=== PATIENT | male | born 1960 | race Two or more races ===

== ENCOUNTER 2024-01-27 22:35 | Inpatient (IN) | payer OTHER ==
[~2024-01-27] VITALS: Ht 182.9 cm; Wt 87.7 kg
[2024-01-27] MEDS ORDERED: LABETALOL HCL 20 MG/4 ML VL IV PRN (23:00)
[2024-01-27] MEDS ORDERED: NALBUPHINE HCL 10 MG/1ml INJECTION IV ONE (23:00)
[2024-01-27] MEDS: InsuLIN REG 1unit/0.01ml Soln (100units/ml) IV ONE (23:00)
[2024-01-27] MEDS ORDERED: HYDROmorphone HCL 2 MG/ML VL/or syr IM ONE (23:00)
[2024-01-27 23:16] LABS: Basophils # (auto) 0 10 ^3/uL (0-0.2); Basophils % (auto) 0.5 % (0.0-2.0); Eosinophils # (auto) 0.1 10 ^3/uL (0-0.8); Eosinophils % (auto) 1.2 % (0.0-7.0); Hematocrit 29.7 % (41.0-53.0); Hemoglobin 10.1 g/dL (13.5-17.5); Lymphocytes # (auto) 0.6 10 ^3/uL (0.4-5.4); Lymphocytes % (auto) 11.2 % (10.0-50.0); Mean Corpuscular Hgb Conc. 33.8 g/dL (32.0-36.0); Mean Corpuscular Volume 97.7 fL (80.0-100.0); Monocytes # (auto) 0.3 10 ^3/uL (0-1.3); Monocytes % (auto) 5.9 % (0.0-12.0); Neutrophils # (auto) 4.7 10 ^3/uL (1.6-8.6); Neutrophils % (auto) 81.2 % (37.0-80.0); Red Blood Cells 3.04 10^6/uL (4.5-5.90); Red Cell Distribution Width 17.6 % (11.8-14.3); White Blood Cell 5.8 10^3/uL (4.4-10.8)
[2024-01-27 23:30] LABS: INR 1.05 (0.9-1.15); Partial Thromboplastin Time 25.5 SEC (24.5-34.5); Prothrombin Time 11.1 sec (9.3-11.8)
[2024-01-27 23:37] LABS: Alanine Aminotransferase 14 U/L (7-40); Albumin 4.6 g/dL (3.2-4.8); Alkaline Phosphatase 80 U/L (46-116); Anion Gap 15 (5-15); Aspartate Aminotransferase 11 U/L (13-40); BUN/Creatinine Ratio 6.5 (10.0-20.0); Bilirubin, Total 0.3 mg/dL (0.2-1.0); Blood Urea Nitrogen 60 mg/dL (9-23); Calcium 9.4 mg/dL (8.7-10.4); Carbon Dioxide 21 mmol/L (20-30); Chloride 96 mmol/L (98-107); Glucose 386 mg/dL (74-106); Potassium 4.1 mmol/L (3.5-5.1); Sodium 132 mmol/L (136-145); Total Protein 8.2 g/dL (5.7-8.2)
[2024-01-28] VITALS (7 sets, daily range): BP systolic 112–136; BP diastolic 54–68; PULSE 76–118; RESP 17–20; TEMP 97.7–98.4; O2SAT 92–100
[2024-01-28] MEDS: MORPHINE SULFATE 4 MG/ML SYR/VIAL IV ONE (01:00)
[2024-01-28] MEDS: ASPirin-EC 325mg tab PO ONE (01:00)
[2024-01-28] MEDS: ENOXAPARIN SOD 100 MG/1 ML SYRINGE SC ONE (02:21)
[2024-01-28] MEDS: ASPirin 325 MG TAB PO ONE (02:22)
[2024-01-28] MEDS ORDERED: MORPHINE SULFATE INJ 2 MG/ml SYRG IV PRN (04:45)
[2024-01-28] MEDS ORDERED: LABETALOL HCL 20 MG/4 ML VL IV PRN (04:45)
[2024-01-28] MEDS ORDERED: ONDANSETRON HCL 4 MG/2 ML VIAL IV PRN (04:45)
[2024-01-28] MEDS ORDERED: DEXTROSE (50%) 50ML SYRG IV PRN (04:45)
[2024-01-28] MEDS ORDERED: NITROGLYCERIN 0.4 MG SL TAB SL PRN (04:45)
[2024-01-28] MEDS: ACCU-CHEK COMFORT CURVE STRIP VI SCH (06:00)
[2024-01-28] MEDS: InsuLIN REG 1unit/0.01ml Soln (100units/ml) SC SCH (06:31)
[2024-01-28 08:15] LABS: Triglycerides 223 mg/dL (< 150)
[2024-01-28 08:16] LABS: LDL Cholesterol 101 mg/dL (< 100)
[2024-01-28 08:17] LABS: Cholesterol 165 mg/dL (< 200); HDL Cholesterol 27 mg/dL (40-59)
[2024-01-28] MEDS ORDERED: ASPirin 81 mg TAB PO SCH (10:00)
[2024-01-28] MEDS: CARVEDILOL 3.125 MG TAB PO SCH (10:05)
[2024-01-28] MEDS: CLOPIDOGREL BISULFATE 75 MG TAB PO ONE (10:42)
[2024-01-28] MEDS: SODIUM CHL 0.9% 1000 ML BAG XX ONE (11:00)
[2024-01-28] MEDS: HEPARIN DRIP/D5W 100UNITS/ML 250 ML IV SCH (13:30)
[2024-01-28 13:36] LABS: Hepatitis B Surface Antibody Positive (Negative)
[2024-01-28 13:48] LABS: Hepatitis B Surface Antigen Negative (Negative)
[2024-01-28 15:09] LABS: Basophils # (auto) 0 10 ^3/uL (0-0.2); Basophils % (auto) 0.8 % (0.0-2.0); Eosinophils # (auto) 0.1 10 ^3/uL (0-0.8); Eosinophils % (auto) 1.7 % (0.0-7.0); Hematocrit 29.3 % (41.0-53.0); Hemoglobin 9.9 g/dL (13.5-17.5); Lymphocytes # (auto) 0.7 10 ^3/uL (0.4-5.4); Lymphocytes % (auto) 11.2 % (10.0-50.0); Mean Corpuscular Hemoglobin 32.2 pg (28.0-32.0); Mean Corpuscular Hgb Conc. 33.9 g/dL (32.0-36.0); Monocytes # (auto) 0.5 10 ^3/uL (0-1.3); Monocytes % (auto) 8.1 % (0.0-12.0); Neutrophils % (auto) 78.2 % (37.0-80.0); Red Blood Cells 3.08 10^6/uL (4.5-5.90); Red Cell Distribution Width 17.8 % (11.8-14.3); White Blood Cell 6.4 10^3/uL (4.4-10.8)
[2024-01-28 15:29] LABS: INR 1.04 (0.9-1.15); Partial Thromboplastin Time 29.4 SEC (24.5-34.5)
[2024-01-28] MEDS ORDERED: MIDO10TA3 PO (18:31)
[2024-01-28] MEDS ORDERED: ATOR80TA PO (18:31)
[2024-01-28] MEDS ORDERED: CARV6.2517 PO (18:31)
[2024-01-28] MEDS ORDERED: CALC667C PO (18:31)
[2024-01-28] MEDS ORDERED: CLOP75TA28 PO (18:31)
[2024-01-28] MEDS ORDERED: GABA-1250 PO (18:31)
[2024-01-28] MEDS ORDERED: ACET-1304 PO (18:31)
[2024-01-28] MEDS ORDERED: CALC0.25 PO (18:31)
[2024-01-28 21:42] LABS: INR 1.03 (0.9-1.15); Partial Thromboplastin Time 29.3 SEC (24.5-34.5); Prothrombin Time 10.9 sec (9.3-11.8)
[2024-01-28] MEDS: ATORVASTATIN 20 MG TAB PO SCH (21:49)
[2024-01-28] MEDS ORDERED: ATORVASTATIN 20 MG TAB PO SCH (22:00)
[2024-01-28] MEDS: HEPARIN SODIUM (PORCINE) 5000 UNITS/ML 1ML VIAL IV ONE (23:13)
[2024-01-29] VITALS (13 sets, daily range): BP systolic 102–128; BP diastolic 52–99; PULSE 79–103; RESP 14–22; TEMP 97.5–98.3; O2SAT 94–99
[2024-01-29 06:10] LABS: Basophils # (auto) 0 10 ^3/uL (0-0.2); Basophils % (auto) 0.6 % (0.0-2.0); Eosinophils # (auto) 0.1 10 ^3/uL (0-0.8); Eosinophils % (auto) 2.3 % (0.0-7.0); Hematocrit 28.1 % (41.0-53.0); Hemoglobin 9.8 g/dL (13.5-17.5); Lymphocytes # (auto) 0.4 10 ^3/uL (0.4-5.4); Lymphocytes % (auto) 6.1 % (10.0-50.0); Mean Corpuscular Hemoglobin 33.4 pg (28.0-32.0); Mean Corpuscular Hgb Conc. 34.8 g/dL (32.0-36.0); Mean Corpuscular Volume 96.1 fL (80.0-100.0); Monocytes # (auto) 0.5 10 ^3/uL (0-1.3); Monocytes % (auto) 7.4 % (0.0-12.0); Neutrophils # (auto) 5.4 10 ^3/uL (1.6-8.6); Neutrophils % (auto) 83.6 % (37.0-80.0); Nucleated Red Blood Cells % 0.1 %; Red Blood Cells 2.92 10^6/uL (4.5-5.90); Red Cell Distribution Width 18.3 % (11.8-14.3); White Blood Cell 6.5 10^3/uL (4.4-10.8)
[2024-01-29 06:13] LABS: INR 1.04 (0.9-1.15); Partial Thromboplastin Time 47.4 SEC (24.5-34.5)
[2024-01-29 06:20] LABS: Alanine Aminotransferase 12 U/L (7-40); Albumin 4.5 g/dL (3.2-4.8); Alkaline Phosphatase 81 U/L (46-116); Anion Gap 13 (5-15); Aspartate Aminotransferase 21 U/L (13-40); BUN/Creatinine Ratio 6.6 (10.0-20.0); Calcium 9.2 mg/dL (8.7-10.4); Carbon Dioxide 24 mmol/L (20-30); Chloride 97 mmol/L (98-107); Potassium 4.3 mmol/L (3.5-5.1); Sodium 134 mmol/L (136-145)
[2024-01-29 06:21] LABS: Bilirubin, Total 0.5 mg/dL (0.2-1.0); Total Protein 8.1 g/dL (5.7-8.2)
[2024-01-29 06:31] LABS: Blood Urea Nitrogen 50 mg/dL (9-23); Glucose 216 mg/dL (74-106)
[2024-01-29] MEDS ORDERED: HEPARIN DRIP/D5W 100UNITS/ML 250 ML IV SCH (06:45)
[2024-01-29] MEDS: LIDOCAINE 2%HCL (LOCAL ANESTH.) INJ 20ML MDV ONE (09:36)
[2024-01-29] MEDS: fentaNYL CITRATE 100 MCG/2 ML VL ONE (09:37)
[2024-01-29] MEDS: MIDAZOLAM HCL 2MG/2ML 2ml VIAL (1mg/ml) ONE (09:37)
[2024-01-29] MEDS: ANGIOMAX 250 MG VIAL IV ONE (09:37)
[2024-01-29] MEDS: SODIUM CHL 0.9% 0 ML ONE (09:38)
[2024-01-29] MEDS: IODIXANOL 320MG/ML 100ML BTL IV ONE (09:53)
[2024-01-30] VITALS (12 sets, daily range): BP systolic 84–120; BP diastolic 44–70; PULSE 73–113; RESP 12–20; TEMP 97.2–98.4; O2SAT 94–100
[2024-01-30 07:18] LABS: Basophils # (auto) 0 10 ^3/uL (0-0.2); Basophils % (auto) 0.4 % (0.0-2.0); Eosinophils # (auto) 0.2 10 ^3/uL (0-0.8); Eosinophils % (auto) 3.8 % (0.0-7.0); Hematocrit 25.9 % (41.0-53.0); Hemoglobin 8.9 g/dL (13.5-17.5); Lymphocytes # (auto) 0.6 10 ^3/uL (0.4-5.4); Lymphocytes % (auto) 13.7 % (10.0-50.0); Mean Corpuscular Hemoglobin 33.7 pg (28.0-32.0); Mean Corpuscular Hgb Conc. 34.3 g/dL (32.0-36.0); Mean Corpuscular Volume 98.3 fL (80.0-100.0); Monocytes # (auto) 0.5 10 ^3/uL (0-1.3); Monocytes % (auto) 11.5 % (0.0-12.0); Neutrophils # (auto) 3.2 10 ^3/uL (1.6-8.6); Neutrophils % (auto) 70.6 % (37.0-80.0); Nucleated Red Blood Cells % 0.1 %; Red Blood Cells 2.63 10^6/uL (4.5-5.90); Red Cell Distribution Width 18.2 % (11.8-14.3); White Blood Cell 4.5 10^3/uL (4.4-10.8)
[2024-01-30 07:27] LABS: Anion Gap 14 (5-15); Carbon Dioxide 19 mmol/L (20-30); Chloride 96 mmol/L (98-107); Potassium 4.6 mmol/L (3.5-5.1)
[2024-01-30 07:34] LABS: BUN/Creatinine Ratio 5.2 (10.0-20.0); Blood Urea Nitrogen 46 mg/dL (9-23); Glucose 173 mg/dL (74-106)
[2024-01-30 07:38] LABS: Sodium 129 mmol/L (136-145)
[2024-01-30] MEDS: CLOPIDOGREL BISULFATE 75 MG TAB PO SCH (10:00)
[2024-01-30] MEDS: SODIUM CHL 0.9% 1000 ML BAG XX ONE (13:00)
[2024-01-30] MEDS ORDERED: ALBUMIN 25% 100 ML IV PRN (13:30)
[2024-01-30] MEDS: LIDOCAINE 2%HCL (LOCAL ANESTH.) INJ 20ML MDV ONE (15:15)
[2024-01-30] MEDS: IODIXANOL 320MG/ML 100ML BTL IV ONE (15:15)
[2024-01-30] MEDS: HEPARIN SODIUM (PORCINE) 5000 UNITS/ML 1ML VIAL ONE (16:03)
[2024-01-30] MEDS: IOHEXOL 350 MG/ML 100ML IJ ONE (16:37)
[2024-01-30] MEDS: fentaNYL CITRATE 100 MCG/2 ML VL ONE (16:55)
[2024-01-30] MEDS: MIDAZOLAM HCL 2MG/2ML 2ml VIAL (1mg/ml) ONE (16:57)
[2024-01-30] MEDS: EPOETIN ALFA-EPBX 10,000 UNIT/1ML VIAL SC ONE (21:35)
[2024-01-31] VITALS (7 sets, daily range): BP systolic 102–136; BP diastolic 42–93; PULSE 54–108; RESP 16–20; TEMP 97.7–98.4; O2SAT 94–98
[2024-01-31] MEDS ORDERED: CALCIUM CARB 500 MG CHEW TAB PO PRN
[2024-01-31 06:19] LABS: Basophils # (auto) 0 10 ^3/uL (0-0.2); Basophils % (auto) 0.4 % (0.0-2.0); Eosinophils # (auto) 0.2 10 ^3/uL (0-0.8); Nucleated Red Blood Cells % 0.1 %
[2024-01-31 06:21] LABS: Eosinophils % (auto) 3.5 % (0.0-7.0); Hematocrit 24.3 % (41.0-53.0); Hemoglobin 8.5 g/dL (13.5-17.5); Lymphocytes # (auto) 0.6 10 ^3/uL (0.4-5.4); Lymphocytes % (auto) 11.9 % (10.0-50.0); Mean Corpuscular Hemoglobin 33.5 pg (28.0-32.0); Mean Corpuscular Hgb Conc. 34.8 g/dL (32.0-36.0); Mean Corpuscular Volume 96.3 fL (80.0-100.0); Monocytes # (auto) 0.6 10 ^3/uL (0-1.3); Monocytes % (auto) 12.9 % (0.0-12.0); Neutrophils # (auto) 3.4 10 ^3/uL (1.6-8.6); Neutrophils % (auto) 71.3 % (37.0-80.0); Red Blood Cells 2.52 10^6/uL (4.5-5.90); Red Cell Distribution Width 18.1 % (11.8-14.3); White Blood Cell 4.8 10^3/uL (4.4-10.8)
[2024-01-31 06:23] LABS: Chloride 96 mmol/L (98-107); Potassium 4.5 mmol/L (3.5-5.1)
[2024-01-31 06:24] LABS: Anion Gap 16 (5-15); Calcium 8.9 mg/dL (8.7-10.4); Carbon Dioxide 22 mmol/L (20-30)
[2024-01-31 06:27] LABS: Sodium 134 mmol/L (136-145)
[2024-01-31 06:29] LABS: BUN/Creatinine Ratio 6.8 (10.0-20.0); Glucose 128 mg/dL (74-106)
[2024-01-31 06:35] LABS: Blood Urea Nitrogen 57 mg/dL (9-23)
[2024-01-31] MEDS: IRON SUCROSE COMPLEX 100 ML IV SCH (12:15)
[2024-02-01] MEDS ORDERED: SODIUM CHL 0.9% 1000 ML BAG XX ONE (07:00)
[2024-02-01] MEDS ORDERED: EPOETIN ALFA-EPBX 4,000 UNIT/ML VIAL SC ONE (21:00)
== END 2024-01-31 23:54 | disposition short-term general hospital (02) | DRG 280 ==
LOC: EDSEX 22:35 → EDBD 22:35 → ER 22:35 → TELE 01-28 04:49 → TELE-WESTW 01-28 16:30
PROVIDERS: ADMIT Nurse Practitioner; ATTEND Internal Medicine
PROC: 06HY33Z Insertion of Infusion Device into Lower Vein, Percutaneous Approach (ICD-10-PCS; principal; 2024-01-28)
PROC: 5A1D70Z Performance of Urinary Filtration, Intermittent, Less than 6 Hours Per Day (ICD-10-PCS; 2024-01-28)
PROC: B211YZZ Fluoroscopy of Multiple Coronary Arteries using Other Contrast (ICD-10-PCS; 2024-01-29)
PROC: B218YZZ Fluoroscopy of Left Internal Mammary Bypass Graft using Other Contrast (ICD-10-PCS; 2024-01-29)
PROC: 4A023N7 Measurement of Cardiac Sampling and Pressure, Left Heart, Percutaneous Approach (ICD-10-PCS; 2024-01-29)
PROC: B44GZZZ Ultrasonography of Left Lower Extremity Arteries (ICD-10-PCS; 2024-01-29)
PROC: B41GYZZ Fluoroscopy of Left Lower Extremity Arteries using Other Contrast (ICD-10-PCS; 2024-01-29)
PROC: B215YZZ Fluoroscopy of Left Heart using Other Contrast (ICD-10-PCS; 2024-01-29)
PROC: 5A1D70Z Performance of Urinary Filtration, Intermittent, Less than 6 Hours Per Day (ICD-10-PCS; 2024-01-30)
PROC: B51MYZZ Fluoroscopy of Right Upper Extremity Veins using Other Contrast (ICD-10-PCS; 2024-01-30)
PROC: 05HA33Z Insertion of Infusion Device into Left Brachial Vein, Percutaneous Approach (ICD-10-PCS; 2024-01-31)
PROC: B54NZZA Ultrasonography of Left Upper Extremity Veins, Guidance (ICD-10-PCS; 2024-01-31)
DX: I21.4 Non-ST elevation (NSTEMI) myocardial infarction (principal); I50.23 Acute on chronic systolic (congestive) heart failure; J96.21 Acute and chronic respiratory failure with hypoxia; N18.6 End stage renal disease; T82.818A Embolism due to vascular prosthetic devices, implants and grafts, initial encounter; I13.2 Hypertensive heart and chronic kidney disease with heart failure and with stage 5 chronic kidney disease, or end stage renal disease; D63.1 Anemia in chronic kidney disease; E11.22 Type 2 diabetes mellitus with diabetic chronic kidney disease; E66.9 Obesity, unspecified; E78.5 Hyperlipidemia, unspecified; Y83.2 Surgical operation with anastomosis, bypass or graft as the cause of abnormal reaction of the patient, or of later complication, without mention of misadventure at the time of the procedure; I25.10 Atherosclerotic heart disease of native coronary artery without angina pectoris; Z95.810 Presence of automatic (implantable) cardiac defibrillator; I25.2 Old myocardial infarction; Z88.6 Allergy status to analgesic agent; Z95.1 Presence of aortocoronary bypass graft; Z86.73 Personal history of transient ischemic attack (TIA), and cerebral infarction without residual deficits; Z87.891 Personal history of nicotine dependence; Z68.26 Body mass index [BMI] 26.0-26.9, adult; Z99.2 Dependence on renal dialysis; Z79.4 Long term (current) use of insulin; Z79.899 Other long term (current) drug therapy; Y92.89 Other specified places as the place of occurrence of the external cause
CPT/HCPCS: 36010; 36901; 36902; 75710; 75893; 93459; 96365; 96372; 96375; 99291; C7518; 36415; 71045; 76080; 80048; 80053; 80061; 82962; 83036; 83880; 84443; 84484; 85025; 85610; 85730; 86706; 87340; 90935; 93005; 93306; 99152; C1894; G0378; J1642; J1756; J1815; J2250; P9047; Q9967

== ENCOUNTER 2024-03-19 14:44 | Emergency (ER) | payer OTHER ==
[~2024-03-19] VITALS: Ht 182.9 cm; Wt 88.0 kg
[~2024-03-19 14:44] MED LIST: ACET-1304 PO; ATOR80TA PO; CALC0.25 PO; CALC667C PO; CARV6.2517 PO; CLOP75TA28 PO; GABA-1250 PO; MIDO10TA3 PO
[2024-03-19 15:25] VITALS: PULSE 68; RESP 11; O2SAT 95
[2024-03-19] MEDS: DEXTROSE (50%) 50ML SYRG IV ONE (15:55)
[2024-03-19] MEDS: SODIUM CHLORIDE 0.9% 500 ML IV ONE (15:56)
[2024-03-19] MEDS: DEXTROSE 50% SYRINGE 50 ML IV ONE (15:56)
[2024-03-19 16:03] LABS: Basophils # (auto) 0 10 ^3/uL (0-0.2); Basophils % (auto) 0.9 % (0.0-2.0); Eosinophils # (auto) 0.2 10 ^3/uL (0-0.8); Eosinophils % (auto) 3.4 % (0.0-7.0); Hematocrit 35.3 % (41.0-53.0); Hemoglobin 11.8 g/dL (13.5-17.5); Lymphocytes # (auto) 0.9 10 ^3/uL (0.4-5.4); Lymphocytes % (auto) 17.9 % (10.0-50.0); Mean Corpuscular Hemoglobin 33.2 pg (28.0-32.0); Mean Corpuscular Hgb Conc. 33.3 g/dL (32.0-36.0); Mean Corpuscular Volume 99.7 fL (80.0-100.0); Monocytes # (auto) 0.5 10 ^3/uL (0-1.3); Monocytes % (auto) 10.5 % (0.0-12.0); Neutrophils # (auto) 3.3 10 ^3/uL (1.6-8.6); Neutrophils % (auto) 67.3 % (37.0-80.0); Nucleated Red Blood Cells % 0.1 %; Platelet Count (auto) 174 10^3/uL (140-450); Red Blood Cells 3.54 10^6/uL (4.5-5.90); Red Cell Distribution Width 15.3 % (11.8-14.3); White Blood Cell 4.9 10^3/uL (4.4-10.8)
[2024-03-19 16:18] LABS: Alanine Aminotransferase 22 U/L (7-40); Albumin 4.9 g/dL (3.2-4.8); Alkaline Phosphatase 83 U/L (46-116); Anion Gap 12 (5-15); Aspartate Aminotransferase 35 U/L (13-40); BUN/Creatinine Ratio 6.7 (10.0-20.0); Blood Urea Nitrogen 51 mg/dL (9-23); Calcium 10.3 mg/dL (8.7-10.4); Carbon Dioxide 27 mmol/L (20-30); Chloride 96 mmol/L (98-107); Glucose 67 mg/dL (74-106); Magnesium 2.5 mg/dL (1.6-2.6); Sodium 135 mmol/L (136-145)
[2024-03-19 16:19] LABS: Bilirubin, Total 0.4 mg/dL (0.2-1.0); Total Protein 8.6 g/dL (5.7-8.2)
[2024-03-19 20:00] VITALS: PULSE 78; RESP 12; O2SAT 97
[2024-03-19 21:00] VITALS: BP 122/62; PULSE 85; RESP 15; TEMP 98; O2SAT 93
[2024-03-19] MEDS ORDERED: LEVO500T91 PO (21:19)
== END 2024-03-19 21:52 | disposition still patient (30) ==
LOC: ER 14:44 → EDBD 14:44 → ER 21:51
DX: E11.649 Type 2 diabetes mellitus with hypoglycemia without coma (principal); R79.89 Other specified abnormal findings of blood chemistry; D63.1 Anemia in chronic kidney disease; N17.9 Acute kidney failure, unspecified; R79.1 Abnormal coagulation profile; I13.2 Hypertensive heart and chronic kidney disease with heart failure and with stage 5 chronic kidney disease, or end stage renal disease; E11.22 Type 2 diabetes mellitus with diabetic chronic kidney disease; N18.6 End stage renal disease; I50.9 Heart failure, unspecified; Z99.2 Dependence on renal dialysis; Z95.1 Presence of aortocoronary bypass graft; Z79.899 Other long term (current) drug therapy; Z88.6 Allergy status to analgesic agent
CPT/HCPCS: 36415; 71046; 80053; 82962; 83735; 84484; 85025; 85379; 93005; 96374; 99285; J7042